=== PATIENT | female | born 1945 | race Caucasian/White ===

== ENCOUNTER → 2018-12-19 | Outpatient (CLI) | payer MEDICARE, BC ==
[~2018-12-19] MED LIST: ALLE180T33 PO; ALLO10TA PO; COLC1TAB14 PO; DULO1CAP2 PO; ELIQ5TAB PO; FLAX10002 PO; FURO40TA2 PO; HYDR-3713 PO; JANU100T PO; LEVO100T5 PO; LEVOTAB10 PO; LISI10TA4 PO; LUTE25CA PO; OCUVTAB PO; PRAV40TA2 PO; TOPR200T PO; TORS10TA3 PO; TOVI4TAB PO; TRIA37.5 PO; VITA400C7 PO; VITA500046 PO; VITA50005 PO; ZYLO300T6 PO
--- NOTE | 2018-12-19 14:17 | REP ---
MR angiography the brain without contrast: History: Cerebral aneurysm, non-ruptured. Comparison brain MR angiography December 02, 2015. 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 Technique: 3-D [id number] MR angiography of the brain is acquired in the usual fashion and maximal intensity projection images were generated in rotational format about the vertical and horizontal axes. In addition, source axial T1-weighted images are viewed in cine mode. MR angiographic findings: The distal vertebral arteries are patent and co-dominant. Basilar artery is a little tortuous but widely patent. The posterior cerebral and superior cerebellar vessels are normal and symmetric. There is absence of flow in the right distal internal carotid artery consistent with stenosis or occlusion as before. There is no evidence of recurrent or new intracranial hernández aneurysm. There is flow signal in the middle and anterior cerebral arteries bilaterally, less vigorous on the right than the left. This asymmetry is little more prominent but not new. There is more atherosclerotic irregularity in the distal internal carotid artery on the left on today's MR study compared to the 2016 prior exam. Impression: There is no evidence of recurrent or new hernández aneurysm. Absence of flow in the right internal carotid artery again noted. Atherosclerotic irregularity in the left internal carotid artery appears more prominent today. Electronically Signed by Tom Christianson MD 12/19/2018 08:03 P
--- NOTE | 2018-12-19 14:18 | REP ---
MR angiography of the carotid arteries without contrast: History: Cerebral aneurysm, non-ruptured. Comparison MR angiography of the carotids is from December 02, 2015. Findings: Exam quality is considerably hampered by what appears to be motion artifact. Exam quality is somewhat limited by patient body habitus as well. 2-D [id number] axial source images confirm the presence of absence of flow in the proximal internal carotid artery on the right consistent with occlusion. The common carotid artery is patent on the right. Symmetric vertebral arteries are observed to be patent. A tortuous ICA is seen on the left. No significant ICA stenosis is observed. The vertebral arteries are codominant. Multiplanar re-formation images are suboptimal due to motion artifact. Impression: Absence of flow in the internal carotid artery persists on the right as previously noted. No other abnormality. Relatively poor image quality today. Electronically Signed by Tom Christianson MD 12/19/2018 08:04 P
== END ==
LOC: M PLARAD 10:22
PROVIDERS: ATTEND Student in an Organized Health Care Education/Training Program
DX: I67.1 Cerebral aneurysm, nonruptured (principal)

== ENCOUNTER 2019-01-21 07:24 | Day surgery (SDC) | payer MEDICARE, BC ==
[~2019-01-21] VITALS: Ht 180.3 cm; Wt 144.7 kg
[~2019-01-21 07:24] MED LIST changes: +ACETAMINOPHEN 325 MG TAB PO PRN; +BALANCED SALT IRRIGATION SOLUTION 500ML BAG (FOR OR EYE MACHINE) As Ordered ONE; +CEFUROXIME 1MG/0.1ML INTRACAMERAL INJ As Ordered ONE; +CYCLOPENTOLATE 2% OPHTH SOLN 2ML BTL OS ONE; +HEALON DUET PRO(HEALON 10MG/ML 0.55ML & HEALON ENDOCOAT 30MG/ML 0.85ML) As Ordered ONE; +LIDOCAINE 1% SDV 5 ML VIAL As Ordered ONE; +LIDOCAINE 3.5 % 1ML OPHTH TOPICAL GEL OU ONE; +MIDAZOLAM INJ 2 MG/2 ML VIAL (J2250) As Ordered ONE; +OFLOXACIN 0.3 % (OCUFLOX) OPTH SOL 5ML OS ONE; +PHENYLEPHRINE 2.5% OPHTH SOL 2ML OS ONE; +PHENYLEPHRINE HCL 10 % OPHTH. SOL 5ML OS PRN; +POVIDONE-IODINE 5% OPHTH PREP SOL 30ML As Ordered ONE; +PROPARACAINE 0.5% OPHTH SOL 15ML XX PRN; +TROPICAMIDE 1% OPHTH SOLN 2ML OS ONE; +VITA-157 PO; +VITAD1000T PO; +fentaNYL 100 MCG/2 ML INJECTION (J3010) As Ordered ONE
[2019-01-21 09:50] VITALS: BP 153/77
[2019-01-21] MEDS ORDERED: AcetaZOLAMIDE 500 MG ER CAP As Ordered ONE (10:02)
[2019-01-21] MEDS ORDERED: KETOROLAC 0.5% OPHTH SOLN XX ONE (10:30)
[2019-01-21] MEDS ORDERED: TRIMETHOBENZAMIDE 300 MG CAP PO PRN (10:30)
[2019-01-21] MEDS ORDERED: AcetaZOLAMIDE 500 MG ER CAP PO ONE (10:30)
--- NOTE | 2019-01-21 12:17 | RO ---
DATE OF PROCEDURE: 01/21/2019 PREPROCEDURE DIAGNOSIS: Age-related nuclear cataract left eye. POSTPROCEDURE DIAGNOSIS: Age-related nuclear cataract left eye. PROCEDURE: Phacoemulsification and posterior chamber intraocular lens implantation. The lens used was AU00T0, 10.0 diopter. SURGEON: Bessy Stacy MD PARTS PROCESSOR: ANESTHESIA: Topical with sedation. DESCRIPTION OF PROCEDURE: The patient was prepped and draped in the usual fashion. A lid speculum was placed between the lids. The eye was fixated. A stab incision was made to the anterior chamber, and 1% nonpreserved lidocaine was instilled. Then, viscoelastic was instilled. The eye was re-fixated. A 2.75 mm sapphire keratome was used to make a clear corneal temporal limbal incision. Capsulorrhexis was begun with a 30-gauge bent needle and then carried out in a circular fashion with capsulorrhexis forceps. The lens was hydrodissected, and then the phacoemulsification unit was used to make a groove in the nucleus in two meridians. The nucleus was then cracked into four quadrants. Each quadrant was removed with the phacoemulsification unit. Any remaining cortex was removed with the irrigation and aspiration (I and A) unit. Capsular bag was refilled with viscoelastic. A posterior chamber intraocular lens was placed in the capsular bag without difficulty. Any remaining viscoelastic was removed with the I and A unit. The wound was hydrated, and Miochol and cefuroxime were instilled into the anterior chamber. The patient tolerated the procedure well and went to the recovery room in stable condition.
== END 2019-01-21 10:20 | disposition home or self-care (01) ==
LOC: M SDC 07:24
PROVIDERS: ATTEND Ophthalmology
DX: H25.12 Age-related nuclear cataract, left eye (principal); I48.91 Unspecified atrial fibrillation; I10 Essential (primary) hypertension; E78.5 Hyperlipidemia, unspecified; E11.9 Type 2 diabetes mellitus without complications; E03.9 Hypothyroidism, unspecified; M10.9 Gout, unspecified; G47.30 Sleep apnea, unspecified; E66.01 Morbid (severe) obesity due to excess calories; Z79.899 Other long term (current) drug therapy
CPT/HCPCS: 66984; 92015; J2250; J3010; V2632

== ENCOUNTER → 2019-05-22 | Outpatient (REF) ==
[~2019-05-22] MED LIST changes: -ACETAMINOPHEN 325 MG TAB PO PRN; -BALANCED SALT IRRIGATION SOLUTION 500ML BAG (FOR OR EYE MACHINE) As Ordered ONE; -CEFUROXIME 1MG/0.1ML INTRACAMERAL INJ As Ordered ONE; +CHOL100029 PO; -CYCLOPENTOLATE 2% OPHTH SOLN 2ML BTL OS ONE; -DULO1CAP2 PO; +DULO1CAP5 PO; -HEALON DUET PRO(HEALON 10MG/ML 0.55ML & HEALON ENDOCOAT 30MG/ML 0.85ML) As Ordered ONE; -LIDOCAINE 1% SDV 5 ML VIAL As Ordered ONE; -LIDOCAINE 3.5 % 1ML OPHTH TOPICAL GEL OU ONE; -MIDAZOLAM INJ 2 MG/2 ML VIAL (J2250) As Ordered ONE; -OFLOXACIN 0.3 % (OCUFLOX) OPTH SOL 5ML OS ONE; -PHENYLEPHRINE 2.5% OPHTH SOL 2ML OS ONE; -PHENYLEPHRINE HCL 10 % OPHTH. SOL 5ML OS PRN; -POVIDONE-IODINE 5% OPHTH PREP SOL 30ML As Ordered ONE; -PROPARACAINE 0.5% OPHTH SOL 15ML XX PRN; -TROPICAMIDE 1% OPHTH SOLN 2ML OS ONE; -VITAD1000T PO; -fentaNYL 100 MCG/2 ML INJECTION (J3010) As Ordered ONE
== END ==
LOC: M LAB LCGH 10:13
PROVIDERS: ATTEND Orthopaedic Surgery
DX: L97.529 Non-pressure chronic ulcer of other part of left foot with unspecified severity (principal)

== ENCOUNTER → 2021-04-07 | Outpatient (CLI) | payer MEDICARE, BC ==
[~2021-04-07] MED LIST changes: +LISI10TA22 PO; -LISI10TA4 PO; -VITA-157 PO; +VITAE40CA PO
--- NOTE | 2021-04-07 15:31 | REPVR ---
PROCEDURE INFORMATION: Exam: MR Head Without Contrast Exam date and time: 04/07/2021 10:38 AM Age: 76 years old Clinical indication: Pain; Headache; Tension; Patient HX: Aneurysm of unspec site. TECHNIQUE: Imaging protocol: MR of the head without contrast. COMPARISON: MRA BRAIN W/O CONTRAST 12/19/2018 10:45 AM FINDINGS: Brain: No acute infarct identified on the diffusion-weighted imaging. No obvious parenchymal hemorrhage. Some limitations assessing the brain parenchyma on the gradient echo imaging due to motion artifacts. The brain demonstrates mild generalized volume loss. Patchy foci of increased signal intensity in the deep white matter on the T2 weighted imaging most likely representing trace chronic small vessel ischemic change. No significant white matter disease for the patient's age. Cerebral ventricles: Normal. No ventriculomegaly. Bones/joints: Unremarkable. Paranasal sinuses: [id number] mucosal thickening in the inferior right maxillary sinus. Trace bilateral ethmoid mucosal disease. Mastoid air cells: Normal as visualized. No mastoid effusion. Orbital cavity: Thinning of the lenses of the globes consistent with prior lens surgery. Soft tissues: Unremarkable. Internal carotid arteries: Low signal intensity in the right sellar/parasellar/cavernous sinus the as well as left supraclinoid ICA regions in keeping with prior coil embolization. This has been previously demonstrated.The arterial vasculature is evaluated separately on a dedicated MRA exam. IMPRESSION: 1. Images are motion degraded. 2. No acute intracranial abnormality seen. Electronically signed by: Lynda Prescott On 04/07/2021 15:31:08 PM
--- NOTE | 2021-04-07 15:40 | REPVR ---
PROCEDURE INFORMATION: Exam: MR Angiography Neck Without Contrast Exam date and time: 04/07/2021 10:38 AM Age: 76 years old Clinical indication: Pain; Headache; Patient HX: Aneurysm of unspec site, h. A TECHNIQUE: Imaging protocol: Magnetic resonance angiography images of the neck without intravenous contrast. COMPARISON: MRA CAROTID WITHOUT CONTRAST 12/19/2018 10:45 AM FINDINGS: Right common carotid artery: No definite stenosis or occlusion. Right internal carotid artery: Occluded or nearly occluded just distal to the bifurcation. Right external carotid artery: No definite stenosis or occlusion. Right vertebral artery: No definite stenosis or occlusion. Left common carotid artery: No definite stenosis or occlusion. Left internal carotid artery: No definite stenosis or occlusion. Left external carotid artery: No definite stenosis or occlusion. Left vertebral artery: No definite stenosis or occlusion. Thyroid: The right thyroid lobe is enlarged. IMPRESSION: 1. Limited study due to motion artifacts. 2. 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 REFERENCES: NASCET CRITERIA. The degree of internal carotid artery stenosis is based on NASCET criteria. Normal is no stenosis. Mild is less than 50% stenosis. Moderate is 50-69% stenosis. Severe is 70% to 99% stenosis. Total occlusion is no detectable patent lumen. Electronically signed by: Lynda Prescott On 04/07/2021 15:39:40 PM
--- NOTE | 2021-04-07 15:45 | REPVR ---
PROCEDURE INFORMATION: Exam: MRA Head Without Contrast; Arteriography Exam date and time: 04/07/2021 10:38 AM Age: 76 years old Clinical indication: Pain; Headache; Patient HX: Aneurysm of unspec site, h. A TECHNIQUE: Imaging protocol: Magnetic resonance angiography head without contrast. Exam focused on the arteries. COMPARISON: MRA BRAIN W/O CONTRAST 12/19/2018 10:45 AM FINDINGS: ANTERIOR CIRCULATION: Right internal carotid artery: The proximal intracranial right ICA is occluded or nearly occluded, as before. Relative reconstitution of flow in the right carotid terminus in keeping with collateralization. Prior coiling of a right cavernous aneurysm. No obvious residual or recurrent aneurysm identified. Right middle cerebral artery: No definite stenosis or occlusion. Right anterior cerebral artery: No definite stenosis or occlusion. Left internal carotid artery: The distal cervical as well as vertical petrous and proximal horizontal petrous segments of the left ICA are difficult to evaluate due to motion; attenuated appearance is probably present on the basis of motion artifact. Prior coil embolization of the supraclinoid left ICA aneurysm. No obvious residual or recurrent aneurysm identified. No occlusion or significant stenosis. Left middle cerebral artery: No definite stenosis or occlusion. Left anterior cerebral artery: No definite stenosis or occlusion. POSTERIOR CIRCULATION: Right vertebral artery: No definite stenosis or occlusion. Left vertebral artery: No definite stenosis or occlusion. Basilar artery: No definite stenosis or occlusion. Right posterior cerebral artery: No definite stenosis or occlusion. Left posterior cerebral artery: No definite stenosis or occlusion. IMPRESSION: 1. Images are motion degraded. 2. To the extent visualized, grossly stable exam. No residual or recurrent ICA aneurysms identified. Electronically signed by: Lynda Presoctt On 04/07/2021 15:44:36 PM
== END ==
LOC: M PLARAD 09:19
PROVIDERS: ATTEND Psychiatry & Neurology Neurology
DX: I72.9 Aneurysm of unspecified site (principal); I65.21 Occlusion and stenosis of right carotid artery

== ENCOUNTER → 2022-03-16 | Outpatient (CLI) | payer MEDICARE, BC | LOC: M PLARAD 09:15 | PROVIDERS: ATTEND Psychiatry & Neurology Neurology | DX: I67.1 Cerebral aneurysm, nonruptured (principal); I65.21 Occlusion and stenosis of right carotid artery ==

== ENCOUNTER → 2023-12-13 | Outpatient (CLI) | payer MEDICARE, BC | LOC: M PLARAD 10:09 | PROVIDERS: ATTEND Orthopaedic Surgery | DX: I67.1 Cerebral aneurysm, nonruptured (principal) ==

== ENCOUNTER → 2024-03-26 | Outpatient (CLI) | payer MEDICARE, BC | LOC: M PLAIMG 10:00 | PROVIDERS: ATTEND Physician Assistant Medical | DX: M43.16 Spondylolisthesis, lumbar region (principal); M99.63 Osseous and subluxation stenosis of intervertebral foramina of lumbar region; M48.061 Spinal stenosis, lumbar region without neurogenic claudication; M47.896 Other spondylosis, lumbar region; M54.50 Low back pain, unspecified ==